=== PATIENT | female | born 1995 | race Caucasian/White ===

== ENCOUNTER 2017-05-17 02:12 | Emergency (ER) | payer OTHER ==
[~2017-05-17] VITALS: Ht 160 cm; Wt 79.0 kg
[~2017-05-17 02:12] MED LIST: LORTA5 PO; NECO1TAB PO
[2017-05-17 02:13] VITALS: BP 149/93; PULSE 75; RESP 18; TEMP 97.9; O2SAT 100
[2017-05-17] MEDS ORDERED: birthcontrol (02:50)
[2017-05-17] MEDS ORDERED: CLINDAMYCIN 150 MG CAP PO ONE (03:00)
[2017-05-17] MEDS ORDERED: CLIN1CAP6 PO (03:12)
[2017-05-17] MEDS ORDERED: MUPI2OIN TOPICAL (03:12)
--- NOTE | 2017-05-17 03:12 | PD ---
HPI Chief Complaint: Skin Problem Time Seen by Provider: 03:03 Travel History International Travel<30 days: No Contact w/Intl Traveler<30days: No Traveled to known affect area: No History of Present Illness HPI Patient is a 22-year-old female presenting to emergency evaluation of a skin lesion to her left breast. 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 She reports it drained spontaneously yesterday, clear fluid. She denies any fever, chills, nausea, vomiting, chest pain. Patient denies any IV drug use. She reports that there are 2 new similar lesions adjacent to the initial one. PFSH Past Medical History Medical History: Denies Significant Hx Hx Anticoagulant Therapy: No Blood Disorders: No Cancer: No Cardiovascular Problems: No Chemotherapy: No Cerebrovascular Accident: No Diabetes: No Genitourinary: No Immune Disorder: No Musculoskeletal: No Psychiatric: No Reproductive: No Respiratory: No Thyroid Disease: No ?: Not Past Surgical History Appendectomy: Yes Hysterectomy: No Other Surgery: No (wisdom teeth) Social History Alcohol Use: Yes Tobacco Use: No Substance Use: No Allergies-Medications (Allergen,Severity, Reaction): Coded Allergies: Yellow Dye #6 (Verified Allergy, Intermediate, 05/17/17) tingling in fingers, vision changes Yellow Dye #10 (Verified Allergy, Mild, Numbness AND TINGLING IN FINGERS, VISION CHANGES, 05/17/17) pt denies allergy Reported Meds & Prescriptions Reported Meds & Active Scripts Active Reported [birthcontrol] DAILY Review of Systems Except as stated in HPI: all other systems reviewed are Neg Skin: Positive Change in Pigmentation, Positive Lesions Physical Exam Narrative GENERAL: Well-nourished, well-developed patient. SKIN: Focused skin assessment warm/dry. 0.5 cm spider hemangioma to left breast in the left lower quadrant, in the center is a scabbed crusted lesion approximately 2-3 mm in size. Breast is nontender, nonfluctuant, no induration or erythema noted. HEAD: Normocephalic. EYES: No scleral icterus. No injection or drainage. NECK: Supple, trachea midline. No JVD or lymphadenopathy. CARDIOVASCULAR: Regular rate and rhythm without murmurs, gallops, or rubs. RESPIRATORY: Breath sounds equal bilaterally. No accessory muscle use. GASTROINTESTINAL: Abdomen soft, non-tender, nondistended. MUSCULOSKELETAL: No cyanosis, or edema. BACK: Nontender without obvious deformity. No CVA tenderness. Data Data Last Documented VS Vital Signs Date Time Temp Pulse Resp B/P Pulse Ox O2 Delivery O2 Flow Rate FiO2 05/17/17 02:13 97.9 75 18 149/93 100 Room Air Orders Clindamycin (Cleocin) (05/17/17 03:00) [facility] Medical Decision Making Medical Screen Exam Complete: Yes Emergency Medical Condition: Yes Interpretation(s) Vital Signs Date Time Temp Pulse Resp B/P Pulse Ox O2 Delivery O2 Flow Rate FiO2 05/17/17 02:13 97.9 75 18 149/93 100 Room Air Differential Diagnosis Cellulitis versus abscess versus impetigo versus folliculitis versus Narrative Course Patient is a 22-year-old female presenting with a lesion on her left breast. This appears consistent with impetigo, however cellulitis is including differential. There is no fluctuance, erythema is superficial. Patient will be started on antibiotics empirically, as well as mupirocin ointment. She is encouraged to keep area covered, wash with soap and water. She is encouraged to follow up with a primary doctor or at the [facility]. She is encouraged to return to emergency department for new or worsening symptoms. She verbalized understanding of instructions. Patient is stable for discharge. Diagnosis Primary Impression: Impetigo Referrals: [facility] Patient Instructions: Cellulitis (DC), General Instructions, Impetigo (ED) Additional Instructions: Follow-up with the [facility] Complete full course of antibiotics as prescribed Return to emergency department for any new or worsening symptoms Med/Other Pt SpecificInfo: Prescription(s) given Scripts Mupirocin Topical 2 % Oint1 Applic TOPICAL BID #22 GM Ref 0 Prov:Lexii Mckenzie 05/17/17 Clindamycin 300 Mg Ams463 Mg PO TID #21 CAP Ref 0 Prov:Lexii Mckenzie 05/17/17 Disposition: 01 DISCHARGE HOME Condition: Stable Lexii Mckenzie May 17, 2017 03:12
== END 2017-05-17 03:40 | disposition home or self-care (01) ==
LOC: NEPD 02:12
DX: L01.00 Impetigo, unspecified (principal)
CPT/HCPCS: 99284